=== PATIENT | male | born 1940 | race Caucasian/White ===

== ENCOUNTER 2018-08-04 03:03 | Emergency (ER) | payer MEDICARE ==
--- NOTE | 2018-08-04 04:37 | ER Document Report ---
ED General - General TRAVEL OUTSIDE OF THE [place] IN LAST 30 DAYS: No - General Chief Complaint: Other Stated Complaint: social hold Time Seen by Provider: 08/04/18 04:03 Notes: Patient is a very pleasant 78-year-old male who is being held in the ER because his Alzheimer's and has no one at home to help him. He came in with his via ambulance. His (Akila Freitas) was the actual initial patient. His had difficulty breathing was found to most likely be having an VT. Patient's therefore had to be answered to [facility]. He does not have any close family in the area however they do have a friend who lives [place] [address] [place] them. The says that this friend's name is Gene Rajput. She said that he would be able to make sure that the patient is safe and does well at the house. The reports she did not have her phone so she did not have Mr. Rajput's phone number however she does know the number of someone who does. The person who would know Mr. Rajput's phone number is a lady by the name of Melisa Elder. Her number is . She says of recall Ms. Elder we can get Mr. Rajput's phone number in the morning. And we can likely contact Mr. Rajput to see if he would be available to help care for Mr. Zuleta while she is in the hospital. Ms. Freitas did not leave us the carter to her house. The keys to the kitchen door. [place] [address] or [id number]. Patient otherwise has been doing well and has no further concerns or complaints at this time. Patient says he does take a few medications in the morning but does not remember the names of them. He denies any history of diabetes or high blood pressure. (HENRIQUE GIBSON) Past Medical History - Social History Smoking Status: Unknown if Ever Smoked Frequency of alcohol use: None Drug Abuse: None Family History: Reviewed & Not Pertinent Patient has suicidal ideation: No Patient has homicidal ideation: No Renal/ Medical History: Denies: Hx Peritoneal Dialysis Review of Systems - Review of Systems Notes: My Normal Review Basic REVIEW OF SYSTEMS: CONSTITUTIONAL : Denies fever, chills, or sweats. Denies recent illness. EENT: Denies eye, ear, throat, or mouth pain or symptoms. Denies nasal or sinus congestion. CARDIOVASCULAR: Denies chest pain. RESPIRATORY: Denies cough, cold, or chest congestion. Denies shortness of breath, difficulty breathing, or wheezing. GASTROINTESTINAL: Denies abdominal pain. Denies nausea, vomiting, or diarrhea. MUSCULOSKELETAL: Denies neck or back pain or joint pain or swelling. SKIN: Denies rash or skin lesions. NEUROLOGICAL: Denies altered mental status or loss of consciousness. Denies headache. Denies weakness or paralysis or loss of use of either side. Denies problems with gait or speech. Denies sensory or motor loss. ALL OTHER SYSTEMS REVIEWED AND NEGATIVE. (HENRIQUE GIBSON) Physical Exam - Notes Notes: General Appearance: Well nourished, alert, cooperative, no acute distress, no obvious discomfort. Well Appearing. Vitals: reviewed, See vital signs table. Eyes: PERRL, EOMI, Conjuctiva clear Mouth: No decreasd moisture Lungs: No wheezing, No rales, No rhonci, No accessory muscle use, good air exchange bilaterally. Heart: Normal rate, Regular rythm, No murmur, no rub Abdomen: Normal BS, soft, No rigidity, No abdominal tenderness, No guarding, no rebound, no abdominal masses, no organomegaly Extremities: strength 5/5 in all extremities, good pulses in all extremities, no edema. Skin: warm, dry, appropriate color, no rash Neuro: speech clear, oriented x 3, normal affect, responds appropriately to questions. Cranial nerves II through XII are intact. Normal gait. Patient does answer questions appropriately but every now and then will asked some repeat questions which is very consistent with his history of Alzheimer's. ( HENRIQUE GIBSON) Discharge - Discharge Clinical Impression: Alzheimer disease Qualifiers: Alzheimer's disease onset: unspecified onset Dementia behavioral disturbance: without behavioral disturbance Qualified Code(s): G30.9 - Alzheimer's disease, unspecified Condition: Good Disposition: HOME, SELF-CARE
[2018-08-04 11:08] VITALS: BP 147/71
== END 2018-08-04 11:06 | disposition home or self-care (01) ==
LOC: ER 03:03
DX: G30.9 Alzheimer's disease, unspecified (principal); F02.80 Dementia in other diseases classified elsewhere, unspecified severity, without behavioral disturbance, psychotic disturbance, mood disturbance, and anxiety; Z79.899 Other long term (current) drug therapy
CPT/HCPCS: 99283